=== PATIENT | female | born 1980 | race Caucasian/White ===

== ENCOUNTER 2018-02-22 22:57 | Inpatient (IN) | payer OTHER ==
[~2018-02-22] VITALS: Ht 175.3 cm; Wt 89.0 kg
[2018-02-22] MEDS ORDERED: ACTIVATED CHARCOAL 50 GM/240 ML SUSPENSION PO ONE (23:15)
[2018-02-22] MEDS ORDERED: SODIUM CHLORIDE 0.9% 1,000 ML IV ONE (23:15)
[2018-02-22 23:44] LABS: BASOPHILS % (AUTO) 0.4 % (0.0-2.0); HEMATOCRIT 40.4 % (36-46); HEMOGLOBIN 13.8 g/dL (12.0-16.0); LYMPHOCYTES # (AUTO) 1.5 K/uL (1.0-4.8); LYMPHOCYTES % (AUTO) 14.2 % (22.0-44.0); MEAN CORPUSCULAR HEMOGLOBIN 31.1 pg (26.0-34.0); MEAN CORPUSCULAR HGB CONC 34.1 G/dL (31.0-37.0); MEAN CORPUSCULAR VOLUME 91 fL (80-100); MONOCYTES # (AUTO) 0.9 K/uL (0.1-1.0); MONOCYTES % (AUTO) 8.6 % (2.0-9.0); NEUTROPHILS % (AUTO) 75.8 % (40.0-70.0); PLATELET COUNT (AUTO) 191 K/uL (150-450); RED BLOOD CELL COUNT(AUTO) 4.42 MIL/uL (4.00-5.20)
[2018-02-22 23:54] LABS: ANION GAP 9 mmol/L (8-16); CALCIUM, TOTAL 7.9 mg/dL (8.8-10.5); CARBON DIOXIDE 28 mmol/L (22-29); CHLORIDE 102 mmol/L (98-107); CREATININE 0.86 mg/dL (0.60-1.30); GLOMERULAR FILTR. RATE CALC > 60 mL/min (>60); GLUCOSE,RANDOM 112 mg/dL (70-110); POTASSIUM 3.3 mmol/L (3.5-5.1); SODIUM SERUM 139 mmol/L (136-145); UREA NITROGEN, BLOOD 14 mg/dL (7-18)
[2018-02-23] LABS: ALANINE AMINOTRANSFERASE 25 U/L (12-78); ALBUMIN 3.9 g/dL (3.4-5.0); ALKALINE PHOSPHATASE 31 U/L (46-116); ASPARTATE AMINOTRANSFERASE 16 U/L (15-37); BILIRUBIN,TOTAL 0.3 mg/dL (0.1-1.0); TOTAL PROTEIN, SERUM 7.8 g/dL (6.4-8.2)
[2018-02-23 00:03] LABS: ACETAMINOPHEN 97 mcg/mL (10-30)
[2018-02-23 00:12] LABS: SALICYLATE 0.7 mg/dL (2.8-20.0)
[2018-02-23] MEDS ORDERED: ACETYLCYSTEINE 20% 200 MG/ML 4 ML ORAL SOLUTION PO ONE (00:15)
[2018-02-23] MEDS ORDERED: ONDANSETRON HCL 4 MG/2 ML VIAL IVP ONE ×2 (00:15→03:45)
[2018-02-23] MEDS ORDERED: KETOROLAC TROMETHAMINE 30 MG/ML VIAL IVP ONE (00:15)
[2018-02-23 00:23] LABS: AMPHET/METH SCREEN,URINE NEGATIVE (NEGATIVE); BARBITURATE SCREEN, URINE NEGATIVE (NEGATIVE); BENZODIAZEPINES SCREEN,URINE NEGATIVE (NEGATIVE); CANNABINOID SCREEN,URINE NEGATIVE (NEGATIVE); COCAINE SCREEN,URINE NEGATIVE (NEGATIVE); METHADONE SCREEN, URINE NEGATIVE (NEGATIVE); OPIATE SCREEN,URINE NEGATIVE (NEGATIVE); PHENCYCLIDINE SCREEN,URINE NEGATIVE (NEGATIVE)
[2018-02-23] MEDS ORDERED: ACETYLCYSTEINE 20% 200 MG/ML 30 ML ORAL SOLUTION PO ONE (00:30)
[2018-02-23] MEDS ORDERED: MORPHINE SULFATE 4 MG/ML SYRINGE IVP ONE (03:45)
[2018-02-23 05:12] LABS: ANION GAP 7 mmol/L (8-16); CALCIUM, TOTAL 7.6 mg/dL (8.8-10.5); CARBON DIOXIDE 27 mmol/L (22-29); CHLORIDE 106 mmol/L (98-107); CREATININE 0.67 mg/dL (0.60-1.30); GLOMERULAR FILTR. RATE CALC > 60 mL/min (>60); GLUCOSE,RANDOM 99 mg/dL (70-110); POTASSIUM 3.4 mmol/L (3.5-5.1); SODIUM SERUM 140 mmol/L (136-145); UREA NITROGEN, BLOOD 10 mg/dL (7-18)
[2018-02-23 05:23] LABS: ALANINE AMINOTRANSFERASE 23 U/L (12-78); ALBUMIN 3.4 g/dL (3.4-5.0); ALKALINE PHOSPHATASE 26 U/L (46-116); ASPARTATE AMINOTRANSFERASE 14 U/L (15-37); BILIRUBIN,TOTAL 0.3 mg/dL (0.1-1.0); TOTAL PROTEIN, SERUM 6.7 g/dL (6.4-8.2)
[2018-02-23 05:30] LABS: ACETAMINOPHEN 171 mcg/mL (10-30)
[2018-02-23] MEDS ORDERED: WATER IV ONE ×6 (05:45→11:00)
[2018-02-23] MEDS ORDERED: ACETYLCYSTEINE IV ONE ×6 (05:45→11:00)
[2018-02-23] MEDS ORDERED: DEXTROSE 5% IV ONE ×6 (05:45→11:00)
[2018-02-23] MEDS ORDERED: CALCIUM GLUCONATE 100 MG/ML 10 ML IVP ONE (06:00)
[2018-02-23 12:20] VITALS: BP 137/86
[2018-02-23] MEDS ORDERED: MAGNESIUM HYDROXIDE SUSPENSION 30 ML UDCUP PO PRN (12:45)
[2018-02-23] MEDS ORDERED: BISACODYL 10 MG RECTAL RECTAL SUPPOSITORY PR PRN (12:45)
[2018-02-23] MEDS ORDERED: MORPHINE SULFATE 4 MG/ML SYRINGE IVP PRN (12:45)
[2018-02-23] MEDS ORDERED: ONDANSETRON HCL 4 MG/2 ML VIAL IVP PRN (12:45)
[2018-02-23] MEDS ORDERED: SODIUM CHLORIDE 0.9% 1,000 ML IV ONE (12:45)
[2018-02-23 12:51] LABS: SALICYLATE 0.2 mg/dL (2.8-20.0)
[2018-02-23] MEDS: ESCITALOPRAM OXALATE 10 MG TABLET PO SCH (15:31)
[2018-02-23 16:30] VITALS: BP 144/85
[2018-02-23] MEDS: HEPARIN SODIUM,PORCINE 5,000 UNITS/ML VIAL SQ SCH ×2 (17:28→23:08)
[2018-02-23 20:15] VITALS: BP 138/74
[2018-02-23] MEDS: DOCUSATE SODIUM 100 MG CAPSULE PO SCH (20:45)
[2018-02-23] MEDS: ZOLPIDEM TARTRATE 5 MG TABLET PO PRN (20:50)
[2018-02-24 00:50] VITALS: BP 130/75
[2018-02-24] MEDS: HydrOXYzine PAMOATE 25 MG CAPSULE PO PRN (02:29)
[2018-02-24 04:38] VITALS: BP 129/91
[2018-02-24 07:19] VITALS: BP 131/94
[2018-02-24] MEDS: ESCITALOPRAM OXALATE 10 MG TABLET PO SCH (08:06)
[2018-02-24] MEDS: HEPARIN SODIUM,PORCINE 5,000 UNITS/ML VIAL SQ SCH (08:06)
[2018-02-24] MEDS: PANTOPRAZOLE SODIUM 40 MG DR TABLET PO SCH (08:07)
[2018-02-24] MEDS: DOCUSATE SODIUM 100 MG CAPSULE PO SCH ×2 (08:07→20:15)
[2018-02-24 09:42] LABS: ALANINE AMINOTRANSFERASE 29 U/L (12-78); ALBUMIN 3.3 g/dL (3.4-5.0); ALKALINE PHOSPHATASE 27 U/L (46-116); ANION GAP 6 mmol/L (8-16); ASPARTATE AMINOTRANSFERASE 15 U/L (15-37); BILIRUBIN,TOTAL 0.3 mg/dL (0.1-1.0); CALCIUM, TOTAL 7.9 mg/dL (8.8-10.5); CARBON DIOXIDE 28 mmol/L (22-29); CHLORIDE 105 mmol/L (98-107); CREATININE 0.64 mg/dL (0.60-1.30); GLOMERULAR FILTR. RATE CALC > 60 mL/min (>60); GLUCOSE,RANDOM 94 mg/dL (70-110); POTASSIUM 3.4 mmol/L (3.5-5.1); SODIUM SERUM 139 mmol/L (136-145); TOTAL PROTEIN, SERUM 6.8 g/dL (6.4-8.2); UREA NITROGEN, BLOOD 7 mg/dL (7-18)
[2018-02-24 10:05] LABS: ACETAMINOPHEN < 2 mcg/mL (10-30)
[2018-02-24 11:28] VITALS: BP 146/85
[2018-02-24] MEDS ORDERED: POTASSIUM CHLORIDE 20 MEQ ER TABLET PO ONE (12:00)
[2018-02-24 15:50] VITALS: BP 147/75
[2018-02-24] MEDS: ZOLPIDEM TARTRATE 5 MG TABLET PO PRN (20:15)
[2018-02-24 20:21] VITALS: BP 130/72
[2018-02-25 01:41] VITALS: BP 135/77
[2018-02-25] MEDS: HydrOXYzine PAMOATE 25 MG CAPSULE PO PRN ×3 (02:29→18:53)
[2018-02-25 04:18] VITALS: BP 133/75
[2018-02-25 07:36] VITALS: BP 132/91
[2018-02-25] MEDS: PANTOPRAZOLE SODIUM 40 MG DR TABLET PO SCH (09:05)
[2018-02-25] MEDS: DOCUSATE SODIUM 100 MG CAPSULE PO SCH ×2 (09:05→20:14)
[2018-02-25] MEDS: ESCITALOPRAM OXALATE 10 MG TABLET PO SCH (09:05)
[2018-02-25 12:05] VITALS: BP 134/89
[2018-02-25 15:15] VITALS: BP 130/77
[2018-02-25 19:45] VITALS: BP 146/88
[2018-02-25] MEDS: ZOLPIDEM TARTRATE 5 MG TABLET PO PRN (20:14)
[2018-02-26] VITALS: BP 139/79
[2018-02-26 03:30] VITALS: BP 133/89
[2018-02-26] MEDS: HydrOXYzine PAMOATE 25 MG CAPSULE PO PRN (03:39)
[2018-02-26 08:03] VITALS: BP 139/82
[2018-02-26] MEDS: ESCITALOPRAM OXALATE 10 MG TABLET PO SCH (08:46)
[2018-02-26] MEDS: PANTOPRAZOLE SODIUM 40 MG DR TABLET PO SCH (08:46)
[2018-02-26] MEDS: DOCUSATE SODIUM 100 MG CAPSULE PO SCH (08:46)
== END 2018-02-26 10:30 | disposition home or self-care (01) | DRG 918 ==
LOC: EMS 23:00 → 5S 02-23 12:28 → 6N 02-24 17:44
PROVIDERS: ADMIT Internal Medicine; ATTEND Internal Medicine
DX: T39.1X2A Poisoning by 4-Aminophenol derivatives, intentional self-harm, initial encounter (principal); F33.2 Major depressive disorder, recurrent severe without psychotic features; R45.851 Suicidal ideations; I10 Essential (primary) hypertension; E87.6 Hypokalemia; Y92.89 Other specified places as the place of occurrence of the external cause
CPT/HCPCS: 93005; 96365; 96366; 96375; 96376; 99291; G0378; G0480; G0481; J0132; J0610; J1644; J1885; J2270; J2405; J7030; J7060